=== PATIENT | female | born 1965 | race Caucasian/White ===

== ENCOUNTER 2017-03-20 13:22 | Emergency (ER) | payer SELFPAY ==
[~2017-03-20] VITALS: Ht 172.7 cm; Wt 78.0 kg
[~2017-03-20 13:22] MED LIST: AMBIEN5 MG PO; BACTRIM DS1 TAB PO; BENZTROPINE0.5 MG PO; CLINDAMYCIN150 MG PO; CLONAZEPAM1 MG PO; KEFLEX500 MG PO; LORTAB 5/3255 MG PO; MECLIZINE25 MG PO; METHOCARBAMOL500 MG PO; NAPROSYN500 MG PO; PROVENTIL HFA IN; PROZAC10 MG PO; PROZAC20 MG PO; RISPERDAL2 MG PO; TEMAZEPAM30 MG PO; TRAMADOL HCL50 MG PO; TRILEPTAL300 M1 PO
[2017-03-20] MEDS ORDERED: [UNRECOGNIZED DRUG - OTHER] PO (13:53)
[2017-03-20] MEDS ORDERED: BACLOFEN20 MG PO (13:53)
[2017-03-20] MEDS ORDERED: LORTAB 10-325 M1 TAB PO (14:55)
[2017-03-20 15:10] VITALS: BP 112/61
== END 2017-03-20 15:10 | disposition home or self-care (01) | DRG 563 ==
LOC: ED 13:22
DX: S92.352A Displaced fracture of fifth metatarsal bone, left foot, initial encounter for closed fracture (principal); F31.9 Bipolar disorder, unspecified; F41.9 Anxiety disorder, unspecified; J45.909 Unspecified asthma, uncomplicated; X50.1XXA Overexertion from prolonged static or awkward postures, initial encounter

== ENCOUNTER 2019-07-14 13:12 | Observation (INO) | payer MEDICARE, MEDICAID ==
[~2019-07-14] VITALS: Ht 172.7 cm; Wt 84.1 kg
[~2019-07-14 13:12] MED LIST changes: +BACLOFEN20 MG PO; +LORTAB 10-325 M1 TAB PO; +[UNRECOGNIZED DRUG - OTHER] PO
[2019-07-14 13:36] LABS: HEMATOCRIT 34.9 % (37.0-47.0); HEMOGLOBIN 11.9 g/dl (12.0-16.0); IMMATURE GRANULOCYTES 0.7 % (0.0-5.0); MEAN CELL VOLUME 85.7 fL CALC (80.0-100.0); MEAN CORPUSCULAR HGB 29.2 pG CALC (26.0-32.0); MEAN CORPUSCULAR HGB CONC 34.1 g/L CALC (32.0-36.0); NEUT# 3.51 thou/uL (2.00-7.15); RED BLOOD COUNT 4.07 mill/uL (4.20-5.60); RED CELL DISTRI WIDTH 13.4 % (11.5-15.5)
[2019-07-14 13:50] LABS: ANION GAP 15 (6-22 (CALC)); BUN 13 mg/dL (7-17); BUN/CREATININE RATIO 28 (12-20 (CALC)); CARBON DIOXIDE 23 mmol/l (22-30); CHLORIDE 93 mmol/l (95-108); CREATININE 0.5 mg/dL (0.5-1.0); GFR > 60 ML/MIN (>=60 (CALC)); GFR FOR AFR.AMER. > 60 ML/MIN (>=60 (CALC)); POTASSIUM 4.2 mmol/l (3.5-5.1); SODIUM 126 mmol/l (137-146)
[2019-07-14 13:58] LABS: GFR > 60 ML/MIN (>=60 (CALC)); GFR FOR AFR.AMER. > 60 ML/MIN (>=60 (CALC))
[2019-07-14] MEDS ORDERED: LYRICA50 MG PO (15:31)
[2019-07-14] MEDS ORDERED: TIZANIDINE HCL2 MG PO (16:58)
[2019-07-14 17:26] VITALS: BP 140/70
[2019-07-14 17:27] LABS: URINE BILIRUBIN - DIPSTICK NEGATIVE (NEGATIVE); URINE BLOOD DIPSTICK NEGATIVE (NEGATIVE); URINE COLOR YELLOW; URINE GLUCOSE - DIPSTICK NEGATIVE (NEGATIVE); URINE KETONE NEGATIVE (NEGATIVE); URINE LEUK ESTERASE NEGATIVE (NEGATIVE); URINE NITRITE - DIPSTICK NEGATIVE (Negative); URINE PROTEIN - DIPSTICK NEGATIVE (NEG-TRACE); URINE SPECIFIC GRAVITY 1.025; URINE UROBILINOGEN - DIPSTICK 0.2 E.U./dL (0.2)
[2019-07-14 19:45] VITALS: BP 148/81
[2019-07-15 04:52] LABS: HEMATOCRIT 37.3 % (37.0-47.0); HEMOGLOBIN 12.5 g/dl (12.0-16.0); MEAN CELL VOLUME 86.9 fL CALC (80.0-100.0); MEAN CORPUSCULAR HGB 29.1 pG CALC (26.0-32.0); MEAN CORPUSCULAR HGB CONC 33.5 g/L CALC (32.0-36.0); RED BLOOD COUNT 4.29 mill/uL (4.20-5.60); RED CELL DISTRI WIDTH 13.9 % (11.5-15.5)
[2019-07-15 05:00] VITALS: BP 169/98
[2019-07-15 05:06] LABS: ANION GAP 17 (6-22 (CALC)); BUN 8 mg/dL (7-17); BUN/CREATININE RATIO 16 (12-20 (CALC)); CARBON DIOXIDE 24 mmol/l (22-30); CHLORIDE 99 mmol/l (95-108); CREATININE 0.5 mg/dL (0.5-1.0); GFR > 60 ML/MIN (>=60 (CALC)); GFR FOR AFR.AMER. > 60 ML/MIN (>=60 (CALC)); POTASSIUM 4.6 mmol/l (3.5-5.1); SODIUM 135 mmol/l (137-146)
[2019-07-15 08:15] VITALS: BP 140/86
[2019-07-15] MEDS ORDERED: MEDDOSEPAK PO (10:22)
== END 2019-07-15 13:20 | disposition home or self-care (01) ==
LOC: ED 13:12 → ED-I 15:08 → ED 15:21 → MS2 15:22
PROVIDERS: Family Medicine; ADMIT Internal Medicine; ATTEND Internal Medicine
PROC: 3E0234Z Introduction of Serum, Toxoid and Vaccine into Muscle, Percutaneous Approach (ICD-10-PCS; principal; 2019-07-15)
DX: R55 Syncope and collapse (principal); E87.1 Hypo-osmolality and hyponatremia; J45.901 Unspecified asthma with (acute) exacerbation; F31.9 Bipolar disorder, unspecified; F41.9 Anxiety disorder, unspecified; Z23 Encounter for immunization

== ENCOUNTER 2019-11-19 22:11 | Observation (INO) | payer MEDICARE, MEDICAID ==
[~2019-11-19] VITALS: Ht 172.7 cm; Wt 82.0 kg
[~2019-11-19 22:11] MED LIST changes: -BENZTROPINE0.5 MG PO; +BENZTROPINE1 MG PO; +FLUOXETINE20 MG PO; +LYRICA150 M1 PO; +MEDDOSEPAK PO; -PROZAC10 MG PO; +TIZANIDINE HCL2 MG PO; -TRILEPTAL300 M1 PO; +TRILEPTAL600 M1 PO
--- NOTE | 2019-11-19 22:12 | NUR ---
PATIENT TO ROOM 8 VIA EMS STRETCHER. UNDRESSED INTO A GOWN. PLACED ON MONITOR. TRIAGE COMPLETED FROM OLD RECORDS. PATIENT IS POOR HISTORIAN, UNABLE TO ANSWER QUESTIONS REGARDING HER HISTORY OTHER THAN SHE IS BIPOLAR. STATES HER MOTHER IS ON HER WAY.
--- NOTE | 2019-11-19 22:34 | NUR ---
EXTREMELY DROWSEY. OPENS EYES ONLY WITH PHYSICAL STIMULI. UNABLE TO OBTAINED SPUTUM SPECIMEN AT THI TIME
[2019-11-19 22:53] LABS: HEMATOCRIT 36.7 % (37.0-47.0); HEMOGLOBIN 12.2 g/dl (12.0-16.0); IMMATURE GRANULOCYTES 0.5 % (0.0-5.0); MEAN CELL VOLUME 85.5 fL CALC (80.0-100.0); MEAN CORPUSCULAR HGB 28.4 pG CALC (26.0-32.0); MEAN CORPUSCULAR HGB CONC 33.2 g/L CALC (32.0-36.0); NEUT# 8.44 thou/uL (2.00-7.15); RED BLOOD COUNT 4.29 mill/uL (4.20-5.60); RED CELL DISTRI WIDTH 14.1 % (11.5-15.5)
--- NOTE | 2019-11-19 22:54 | NUR ---
FAMILY AT BEDSIDE
[2019-11-19 23:09] LABS: ALBUMIN 4.2 g/dL (3.2-5.0); ALKALINE PHOSPHATASE 105 u/l (38-126); BUN 12 mg/dL (7-17); BUN/CREATININE RATIO 23 (12-20 (CALC)); CARBON DIOXIDE 23 mmol/l (22-30); CHLORIDE 88 mmol/l (95-108); CREATININE 0.5 mg/dL (0.5-1.0); ETHYL ALCOHOL 0 mg/dl (0-30); GFR > 60 ML/MIN (>=60 (CALC)); GFR FOR AFR.AMER. > 60 ML/MIN (>=60 (CALC)); POTASSIUM 3.9 mmol/l (3.5-5.1); SGOT/AST 58 u/l (14-36); TOTAL PROTEIN 7.1 g/dL (6.3-8.2)
[2019-11-19 23:24] LABS: ANION GAP 19 (6-22 (CALC)); BILIRUBIN, TOTAL 0.9 mg/dL (0.0-1.4); SODIUM 126 mmol/l (137-146)
[2019-11-19 23:28] LABS: COCAINE NEGATIVE (NEGATIVE); METHADONE NEGATIVE (NEGATIVE); TETRAHYDROCANNABIONOL POSITIVE (NEGATIVE); TRICYLIC ANTIDEPRESSANTS POSITIVE (NEGATIVE)
[2019-11-19 23:29] LABS: BARBITURATES NEGATIVE (NEGATIVE); OXCYCODONE NEGATIVE (NEGATIVE)
--- NOTE | 2019-11-19 23:31 | NUR ---
VISITOR AT BEDSIDE. PT AWAITING TEST RESULTS. BEDRESTING WITH EYES CLOSED.
[2019-11-19 23:36] LABS: URINE BILIRUBIN - DIPSTICK NEGATIVE (NEGATIVE); URINE BLOOD DIPSTICK NEGATIVE (NEGATIVE); URINE COLOR YELLOW; URINE GLUCOSE - DIPSTICK NEGATIVE (NEGATIVE); URINE KETONE NEGATIVE (NEGATIVE); URINE LEUK ESTERASE NEGATIVE (NEGATIVE); URINE NITRITE - DIPSTICK NEGATIVE (Negative); URINE PH 5.5 (4.5-8.0); URINE PROTEIN - DIPSTICK NEGATIVE (NEG-TRACE); URINE UROBILINOGEN - DIPSTICK 0.2 E.U./dL (0.2)
--- NOTE | 2019-11-19 23:41 | NUR ---
B/P 81/43 PT SLEEPING AND SNOORING. PT REMAINS DIFFICULT TO AWAKEN. TO INITIATE FLUID BOLUS.
--- NOTE | 2019-11-19 23:48 | NUR ---
FLUID BOLUS INITIATED WITH FIRST LITER OF NS
--- NOTE | 2019-11-20 00:12 | NUR ---
SECOND LACTIC ACID OBTAINED
--- NOTE | 2019-11-20 00:31 | NUR ---
DRANK A BOTTLE OF PEDIALYTE AND TOLERATED WELL
--- NOTE | 2019-11-20 00:33 | NUR ---
BEDRESTING. SISTER AT BEDSIDE. NO DISTRESS NOTED
--- NOTE | 2019-11-20 00:45 | NUR ---
WET DIAPER. ALERT. AND ACTIVE. NO DISTRESS NOTED
--- NOTE | 2019-11-20 00:50 | NUR ---
PT MORE AWAKE.
--- NOTE | 2019-11-20 00:55 | NUR ---
PT STATES SHE WANTS TO GO HOME AND GET INTO HER BED TO SLEEP. HER SISTER SAID THE ONLY WAY SHE IS GOING HOME IS IF SHE CAN WALK OUT THE DOOR ON HER OWN. SHE WAS NOT LIFTING HER. PT AGREED TO STAY
--- NOTE | 2019-11-20 01:00 | NUR ---
BOLUS CONTINUES WITH SECOND LITER OF FLUIDS
--- NOTE | 2019-11-20 01:05 | NUR ---
DISCUSSING FINDINGS AND PLAN OF CARE WITH PT AND FAMILY
[2019-11-20] MEDS ORDERED: TRILEPTAL300 M1 PO (01:28)
--- NOTE | 2019-11-20 01:40 | NUR ---
REPORT CALLED TO PONCHO TAPIA ON MS
--- NOTE | 2019-11-20 01:46 | NUR ---
3RD LITER OF NS INTIATED TO COMPLETE FLUIDS BOLUS
--- NOTE | 2019-11-20 02:00 | NUR ---
PT ARIVED TO THE FLOOR VIA STRETCHER ACCOMPANIED BY ED STAFF. PT DROWSY, PT TRANSFERED FROM STRETCHER TO BED. RESPIRATIONS EVEN AND UNLABORED ON O2 @ 2L VIA NC. LUNGS SOUND CLEAR. PEDAL PULSES STRONG. PT DENIES ANY PAIN OR DISCOMFORT. SKIN IS INTACT. PT ORIENTED TO ROOM AND CALL [facility]. PT PROVIDED WITH WATER AND A SNACK PER REQUEST. CALL [facility] WITHIN REACH. WILL CONTINUE TO MONITOR.
--- NOTE | 2019-11-20 02:00 | NUR ---
TO MS VIA STRETCHER. AWAKE AND ALERT. TALKATIVE
[2019-11-20 02:09] VITALS: BP 98/58
[2019-11-20 03:30] VITALS: BP 93/54
--- NOTE | 2019-11-20 04:30 | NUR ---
PT RESTING IN BED WITH EYES CLOSED. RESPIRATIONS SHALLOW ON O2 @ 2L VIA NC. NO S/S OF DISTRESS AT THIS TIME. SAFETY PRECAUTIONS IN PLACE.
[2019-11-20 05:17] LABS: IMMATURE GRANULOCYTES 0.6 % (0.0-5.0); MEAN CORPUSCULAR HGB 29.2 pG CALC (26.0-32.0); MEAN CORPUSCULAR HGB CONC 33.9 g/L CALC (32.0-36.0); NEUT# 8.56 thou/uL (2.00-7.15); RED BLOOD COUNT 3.43 mill/uL (4.20-5.60); RED CELL DISTRI WIDTH 14.4 % (11.5-15.5)
[2019-11-20 05:30] LABS: HEMATOCRIT 29.5 % (37.0-47.0)
[2019-11-20 05:38] LABS: ANION GAP 13 (6-22 (CALC)); BUN 12 mg/dL (7-17); BUN/CREATININE RATIO 24 (12-20 (CALC)); CARBON DIOXIDE 22 mmol/l (22-30); CHLORIDE 96 mmol/l (95-108); CREATININE 0.5 mg/dL (0.5-1.0); GFR > 60 ML/MIN (>=60 (CALC)); GFR FOR AFR.AMER. > 60 ML/MIN (>=60 (CALC)); POTASSIUM 4.2 mmol/l (3.5-5.1); SODIUM 127 mmol/l (137-146)
[2019-11-20 07:25] VITALS: BP 130/77
--- NOTE | 2019-11-20 07:25 | NUR ---
AWAKE, RESTING IN BED ON ROUNDS. ALERT AND WELL ORIENTED. RESP NON-LABORED. LUNGS CLEAR THROUGHOUT. VSS. IV IN RAC WITH NS INFUSING AT 125 ML/HR, SITE BENIGN. ASSISTED PATIENT TO BR TO VOID, STANCE STABLE, GAIT SOMEWHAT UNSTEADY. REINFORCED WITH PATIENT FALL PRECAUTIONS AND NEED TO CALL FOR ASSISTANCE TO BE OOB. DISCUSSED PLAN OF CARE. MEDICTED FOR C/O HEADACHE. CALL JASSO IN REACH.
[2019-11-20] MEDS ORDERED: SINGULAIR10 MG PO (11:02)
[2019-11-20] MEDS ORDERED: CELEBREX100 M1 PO (11:03)
--- NOTE | 2019-11-20 11:10 | NUR ---
PATIENT HAD 2V CHEST XRAY IN XRAY DEPARTMENT COMPLETED. BACK IN BED AT THIS TIME. C/O HEADACHE AND FEELING VERY HOT. RECHECK OF VS REVEAL TEMP OF 103.5. INFORMED E CAMILO/CARRIE AND NEW ORDERS RECEIVED.
[2019-11-20 11:15] VITALS: BP 123/72
--- NOTE | 2019-11-20 12:30 | NUR ---
RECHECK OF TEMP 98.6.
[2019-11-20 15:39] VITALS: BP 122/78
--- NOTE | 2019-11-20 18:30 | NUR ---
PATIENT TO GO FOR CT ABD, STARTED GASTROGRAPHIN AT THIS TIME.
[2019-11-20 18:40] VITALS: BP 116/71
--- NOTE | 2019-11-20 20:50 | NUR ---
PT TAKEN TO CT SCAN BY AIDE VIA WC. APPEARED STABLE UPON LEAVING FLOOR, SELF AMBULATED TO WC.
--- NOTE | 2019-11-20 23:31 | NUR ---
PT ASSISTED BACK TO BED FROM RESTROOM. REPORTS MULTIPLE STOOL THIS PM SINCE RETURNING FROM CT SCAN/REPOTED FORMED X3 AND 1X LOOSE. PT MEDICATED W/IV ANTIBIOTIC THERAPY. DENIES ANY OTHER NEEDS AT THIS TIME. CALL LIGHT AT BEDSIDE.
--- NOTE | 2019-11-21 02:05 | NUR ---
PT APPEARS TO BE SLEEPING AT THIS TIME. NO S/O DISTRESS NOTED.
[2019-11-21 03:20] VITALS: BP 151/84
[2019-11-21 05:03] LABS: HEMATOCRIT 33.3 % (37.0-47.0); HEMOGLOBIN 10.8 g/dl (12.0-16.0); MEAN CELL VOLUME 86.5 fL CALC (80.0-100.0); MEAN CORPUSCULAR HGB 28.1 pG CALC (26.0-32.0); MEAN CORPUSCULAR HGB CONC 32.4 g/L CALC (32.0-36.0); RED BLOOD COUNT 3.85 mill/uL (4.20-5.60); RED CELL DISTRI WIDTH 14.9 % (11.5-15.5)
[2019-11-21 05:04] LABS: ANION GAP 13 (6-22 (CALC)); BUN 7 mg/dL (7-17); BUN/CREATININE RATIO 16 (12-20 (CALC)); CARBON DIOXIDE 23 mmol/l (22-30); CHLORIDE 101 mmol/l (95-108); CREATININE 0.4 mg/dL (0.5-1.0); GFR > 60 ML/MIN (>=60 (CALC)); GFR FOR AFR.AMER. > 60 ML/MIN (>=60 (CALC)); MAGNESIUM 1.9 mg/dL (1.6-2.3); POTASSIUM 4.2 mmol/l (3.5-5.1); SODIUM 133 mmol/l (137-146)
--- NOTE | 2019-11-21 05:48 | NUR ---
PT MEDICATED ORDERS PROVIDE. NO S/O DISTRESS AT THIS TIME. PT REPORTS FEELING TIRED. SHE IS AWAKE W/LIGHTS ON WATCHING TV.
[2019-11-21 07:40] VITALS: BP 149/82
--- NOTE | 2019-11-21 07:40 | NUR ---
ASSESSMENT IS COMPLETED: IV SITE IS FREE FROM REDNESS OR EDEMA. HR IS REG,PULSES ARE STRONG X4, ABD IS SOFT WITH ACTIVE BS. BREATH SOUNDS ARE CLEAR,BILATERALLY. CONTINUE TO OSEBRVE AND MONITOR.
[2019-11-21] MEDS ORDERED: Levaquin PO (11:50)
--- NOTE | 2019-11-21 12:00 | NUR ---
PT IS RELAXING IN BED WANTING TO GO HOME. EXPLAINED ABOUT NEEDING STOOL . PT SAID "THAT ONLY HAPPENED WHHEN I HAD GASTROGAFFIN, NOW IT HAS RESOLVED". CONTINUE TO OSBERVE AND MONITOR.
--- NOTE | 2019-11-21 14:45 | NUR ---
IV SITE DISCONTINUED CATHETER INTACT.
--- NOTE | 2019-11-21 15:07 | NUR ---
PT AMBULATED OFF THE UNIT. WITH FAMILY MEMBERS RECEIVED DISCHARGE INSTRUCTIONS. AND VERBALZIED UNDERSTANDING. Discharge instructions given. Patient verbalizes understanding of same. Discharged in stable condition via Ambulatory to Home with family. All belongings sent with pt.
--- NOTE | 2019-11-21 15:30 | NUR ---
AUXILLARY IN THE UNIT,. STATED" THE PT NEEDED A WC AFTER SHE WENT DOWNSTAIRS" WAS OFFERED BEFORE LEAVING THE UNIT.
== END 2019-11-21 15:07 | disposition home or self-care (01) ==
LOC: ED 22:11 → ED-I 11-20 00:57 → ED 11-20 01:16 → MS2 11-20 01:17
PROVIDERS: Family Medicine; Nurse Practitioner Family; ADMIT Internal Medicine; ATTEND Internal Medicine
DX: R50.9 Fever, unspecified (principal); E87.1 Hypo-osmolality and hyponatremia; F31.9 Bipolar disorder, unspecified; K59.00 Constipation, unspecified; Z87.891 Personal history of nicotine dependence; R11.2 Nausea with vomiting, unspecified; R19.7 Diarrhea, unspecified
CPT/HCPCS: G0378; J0131; J1650

== ENCOUNTER 2019-11-24 22:01 | Inpatient (IN) | payer MEDICARE, MEDICAID ==
[~2019-11-24] VITALS: Ht 172.7 cm; Wt 81.6 kg
[~2019-11-24 22:01] MED LIST changes: +CELEBREX100 M1 PO; +Levaquin PO; +SINGULAIR10 MG PO; +TRILEPTAL300 M1 PO
--- NOTE | 2019-11-24 22:01 | NUR ---
TO ROOM BY EMS
[2019-11-24 22:43] LABS: URINE BLOOD DIPSTICK TRACE-INTACT (NEGATIVE); URINE GLUCOSE - DIPSTICK NEGATIVE (NEGATIVE); URINE KETONE NEGATIVE (NEGATIVE); URINE LEUK ESTERASE NEGATIVE (NEGATIVE); URINE NITRITE - DIPSTICK NEGATIVE (Negative); URINE PH 5.5 (4.5-8.0); URINE PROTEIN - DIPSTICK TRACE mg/dL (NEG-TRACE); URINE UROBILINOGEN - DIPSTICK 0.2 E.U./dL (0.2)
[2019-11-24 22:44] LABS: URINE BILIRUBIN - DIPSTICK MODERATE (NEGATIVE); URINE COLOR AMBER
[2019-11-24 22:45] LABS: HEMATOCRIT 34.3 % (37.0-47.0); HEMOGLOBIN 11.5 g/dl (12.0-16.0); IMMATURE GRANULOCYTES 0.6 % (0.0-5.0); MEAN CELL VOLUME 84.3 fL CALC (80.0-100.0); MEAN CORPUSCULAR HGB 28.3 pG CALC (26.0-32.0); MEAN CORPUSCULAR HGB CONC 33.5 g/L CALC (32.0-36.0); NEUT# 7.71 thou/uL (2.00-7.15); RED BLOOD COUNT 4.07 mill/uL (4.20-5.60); RED CELL DISTRI WIDTH 14.5 % (11.5-15.5)
[2019-11-24 23:57] LABS: ALBUMIN 3.7 g/dL (3.2-5.0); ALKALINE PHOSPHATASE 254 u/l (38-126); ANION GAP 16 (6-22 (CALC)); BILIRUBIN, TOTAL 2.7 mg/dL (0.0-1.4); BUN 25 mg/dL (7-17); BUN/CREATININE RATIO 27 (12-20 (CALC)); CARBON DIOXIDE 24 mmol/l (22-30); CHLORIDE 91 mmol/l (95-108); CREATININE 0.9 mg/dL (0.5-1.0); GFR > 60 ML/MIN (>=60 (CALC)); GFR FOR AFR.AMER. > 60 ML/MIN (>=60 (CALC)); POTASSIUM 3.4 mmol/l (3.5-5.1); SGOT/AST 241 u/l (14-36); SODIUM 128 mmol/l (137-146); TOTAL PROTEIN 6.5 g/dL (6.3-8.2)
[2019-11-25] MEDS ORDERED: PROZAC20 MG PO (02:56)
[2019-11-25] MEDS ORDERED: TRILEPTAL150 M1 PO (03:01)
--- NOTE | 2019-11-25 06:12 | NUR ---
PT. ARRIVED TO THE FLOOR VIA W/C ACCOMPANIED BY ER NURSE. PT. ABLE TO AMBULATE TO SCALE AND BED WITH STEADY GAIT. ORIENTED TO CALL LIGHT, ROOM, AND POC AND VERBALIZES UNDERSTANDING. ADMISSION QUESTIONARE COMPLETED AND VSS. TELEMETRY IN PLACE. IV SITE PATENT AND ORDERED IVF AND ABT HUNG PER ORDER. DENIES NEEDS AND VOICES NO CONCERNS. CALL LIGHT IS IN REACH.
[2019-11-25 06:28] VITALS: BP 129/71
--- NOTE | 2019-11-25 07:15 | NUR ---
REPORT RECIEVED FROM MARYRN;PT RESTING IN SEMI FOWLERS POSITION;INTRODUCED SELF TO PT AND POC DISCUSSED;RESPIRATIONS EVEN AND UNLABORED ON RA;PT DENIES ANY CURRENT PAIN OR NEEDS;TELE MONITORING IN PLACE;IV FLUIDS INFUSING TO RIGHT HAND WITH EASE;ENCOURAGED TO CALL FOR ASSISTANCE IF NEEDED;FALL PRECAUTIONS IN PLACE WITH CALL LIGHT IN REACH;WILL CONTINUE TO MONITOR
--- NOTE | 2019-11-25 08:40 | NUR ---
PT RESTING IN SEMI FOWLERS POSITION,A&O X3;VS OBTAINED AND ASSESSMENT COMPLETED;PT DENIES ANY CURRENT PAIN OR DISCOMFORTS,PAIN SCALE AND REPORTING EDUCATED;RESPIRATIONS EVEN AND UNLABORED ON RA,CLEAR/DIMINISHED LUNG SOUNDS NOTED;NON-PRODUCTIVE COUGH AT TIMES;ABDOMEN SOFT ON PALPATION AND ACTIVE IN ALL 4 QUADRANTS,LAST BM 11/23/19;STRONG PEDAL PULSES;SKIN INTACT;TELE MONITORING IN PLACE;EMS #20G TO RIGHT HAND INFUSING NS @ 125ML/HR,SITE APPEARS HEALTHY;PT DENIES ANY ADDITIONAL NEEDS AND IS ENCOURAGED TO CALL FOR ASSISTANCE IF NEEDED;CALL LIGHT IN REACH;WILL CONTINUE TO MONITOR
[2019-11-25 08:43] VITALS: BP 140/73
--- NOTE | 2019-11-25 10:41 | NUR ---
AT BEDSIDE DISCUSSING POC WITH PT.
[2019-11-25 12:23] VITALS: BP 151/84
--- NOTE | 2019-11-25 12:30 | NUR ---
PT RESTING IN SEMI FOWLERS POSITION;RESPIRATIONS EVEN AND UNLABORED ONRA;PT DENIES ANY CURRENT PAIN OR DISCOMFORTS;TELE MONITORING IN PLACE;IV FLUIDS INFUSING WITH EASE PER ORDER;TEMP 100.9, PRN TYLENOL 650MG PO ADMINISTERED AT THIS TIME;PT ENCOURAGED TO CALL FOR ASSISTANCE IF NEEDED;CALL LIGHT IN REACH;WILL CONTINUE TO MONITOR
--- NOTE | 2019-11-25 13:40 | NUR ---
TEMP RE-CHECK 99.3
[2019-11-25 15:54] VITALS: BP 157/80
--- NOTE | 2019-11-25 16:20 | NUR ---
PT RESTING IN SEMI FOWLERS POSITION WITH VISITORS AT BEDSIDE;RESPIRATIONS EVEN AND UNLABORED ON RA;PT DENIES ANY CURRENT PAIN OR DISCOMFORTS;TELE MONITORING IN PLACE;IV FLUIDS INFUSING TO RIGHT HAND WITH EASE;ASSESSMENT REMAINS UNCHANGED AT THIS TIME;ENCOURAGED TO CALL FOR ASSISTANCE IF NEEDED;CALL LIGHT IN REACH;WILL CONTINUE TO MONITOR
--- NOTE | 2019-11-25 16:54 | NUR ---
EMS IV SITE REMOVED WITH CATHETER INTACT DUE TO EXPIRATION DATE;NEW #22G STARTED TO LEFT HAND ON 1ST ATTEMPTBY THIS WRITTER,PT TOLERATED WELL;IV FLUIDS RE-STARTED PER ORDER;PT DENIES ANY ADDITIONAL NEEDS;WILL CONTINUE TO MONITOR
[2019-11-25 19:02] VITALS: BP 153/83
--- NOTE | 2019-11-25 20:00 | NUR ---
PATIENT RESTING IN BED AT THIS TIME. AWAKE ALERT AND ORIENTEDX3. PATIENT MIN ASSIST TO THE BR TO VOID AND THEN BACK TO BED. STEADY ON HER FEET. TELE MONITOR IN PLACE. NON-PRODUCTIVE COUGH NOTED. IV SITE TO LEFT HAND INTACT WITH IVF NS PATENT AND INFUSING AT 125CC/HR. SITE REMIANS HEALTHY AT THIS TIME. AFEBRILE AT THIS ITME. SAFETY PRECAUTIONS REINFORCED. CALL LIGHT IN REACH. WILL CONT TO MONITOR.
[2019-11-26] VITALS (8 sets, daily range): BP systolic 141–179; BP diastolic 71–97
--- NOTE | 2019-11-26 03:43 | NUR ---
PATIENT RESTING IN BED WITH HOB SLIGHTLY ELEVATED AND EYES CLOSED. RESP ARE EVEN AND UNLABORED. TELE MONITOR IN PLACE. CALL LIGHT IN REACH. WILL CONT TO MONITOR.
[2019-11-26 05:31] LABS: HEMATOCRIT 31.7 % (37.0-47.0); HEMOGLOBIN 10.5 g/dl (12.0-16.0); MEAN CELL VOLUME 86.1 fL CALC (80.0-100.0); MEAN CORPUSCULAR HGB 28.5 pG CALC (26.0-32.0); MEAN CORPUSCULAR HGB CONC 33.1 g/L CALC (32.0-36.0); NEUT# 4.45 thou/uL (2.00-7.15); RED BLOOD COUNT 3.68 mill/uL (4.20-5.60)
[2019-11-26 05:52] LABS: ALBUMIN 3.1 g/dL (3.2-5.0); ALKALINE PHOSPHATASE 245 u/l (38-126); BILIRUBIN, TOTAL 2.5 mg/dL (0.0-1.4); BUN 7 mg/dL (7-17); BUN/CREATININE RATIO 17 (12-20 (CALC)); CARBON DIOXIDE 23 mmol/l (22-30); CREATININE 0.4 mg/dL (0.5-1.0); GFR > 60 ML/MIN (>=60 (CALC)); GFR FOR AFR.AMER. > 60 ML/MIN (>=60 (CALC)); POTASSIUM 3.8 mmol/l (3.5-5.1); SGOT/AST 152 u/l (14-36); TOTAL PROTEIN 5.7 g/dL (6.3-8.2)
[2019-11-26 06:01] LABS: ANION GAP 13 (6-22 (CALC)); CHLORIDE 104 mmol/l (95-108); SODIUM 136 mmol/l (137-146)
--- NOTE | 2019-11-26 07:20 | NUR ---
REPORT RECEIVED FROM PONCHO SANDOVAL;PT RESTING IN SEMI FOWLERS POSITION;INTRODUCED SELF TO PT AND POC DISCUSSED;PT DENIES ANY CURRENT PAIN OR NEEDS;TELE MONITORING IN PLACE;RESPIRATIONS EVEN AND UNLABORED ON RA;IV FLUIDS INFUSING WITH EASE TO LEFT HAND;ENCOURAGED TO CALL FOR ASSISTANCE IF NEEDED;FALL PRECAUTIONS IN PLACE WITH BED IN THE LOWEST POSITION AND CALL LIGHT IN REACH;WILL CONTINUE TO MONITOR
[2019-11-26 07:39] LABS: C-REACTIVE PROTEIN 6.1 mg/dL (0-0.9)
--- NOTE | 2019-11-26 07:40 | NUR ---
LAB AT BEDSIDE
--- NOTE | 2019-11-26 08:00 | NUR ---
PT RESTING IN SEMI FOWLERS POSITION,A&O X3;VS OBTAINED AND ASSESSMENT COMPLETED,CURRENT BP 170/90 HR 69;PT REPORTS HEADACHE PAIN AND REQUESTS PAIN MEDICATION,PT TO BE MEDICATED WITH PRN TYLENOL 650MG PO;RESPIRATIONS EVEN AND UNLABORED ON RA,NON-PRODUCTIVE COUGH AT TIMES;ABDOMEN SOFT ON PALPATION AND ACTIVE IN ALL 4 QUADRANTS;STRONG PEDAL PULSES;SKIN INTACT;TELE MONITORING IN PLACE;#22G TO LEFT WRIST INFUSING NS @ 100ML/HR,SITE APPEARS HEALTHY;PT DENIES ANY ADDITIONAL NEEDS AT THIS TIME AND IS ENCOURAGED TO CALL FOR ASSISTANCE IF NEEDED;FALL PRECAUTIONS IN PLACE WITH CALL LIGHT IN REACH;WILL CONTINUE TO MONITOR
--- NOTE | 2019-11-26 09:20 | NUR ---
BP RE-CHECK 148/72 HR 71
--- NOTE | 2019-11-26 12:20 | NUR ---
PT RESTING AT BEDSIDE EATING LUNCH;RESPIRATIONS EVEN AND UNLABORED ON RA;PT DENIES ANY CURRENT PAIN OR NEEDS;TELE MONITORING IN PLACE;IV SITE PATENT INFUSING NS WITH EASE PER ORDER;PT DENIES ANY ADDITIONAL NEEDS AND IS ENCOURAGED TO CALL FOR ASSISTANCE IF NEEDED;ASSESSMENT REMAINS UNCHANGED;CALL LIGHT IN REACH;WILL CONTINUE TO MONITOR
--- NOTE | 2019-11-26 16:10 | NUR ---
PT RESTING AT BEDSIDE;RESPIRATIONS EVEN AND UNLABORED ON RA;PT DENIES ANY CURRENT PAIN OR NEEDS;TELE MONITORING IN PLACE;IV FLUIDS INFUSING TO LEFT HAND WITH EASE PER ORDER;PT DENIES ANY ADDITIONAL NEEDS AND IS ENCOURAGED TO CALL FOR ASSISTANCE IF NEEDED;CALL LIGHT IN REACH;WILL CONTINUE TO MONITOR
--- NOTE | 2019-11-26 20:00 | NUR ---
PATIENT RESTING IN BED AT THIS TIME WATCHING TV. AWAKE ALERT AND ORIENTEDX3. IVF NS PAENT AND INFUSING VIA LEFT HAND AT 125CC/HR. SITE REMAINS HEALTHY. CALL LIGHT IN REACH. WILL CONT TO MONITOR.
--- NOTE | 2019-11-27 | NUR ---
PATIENT ASSISTED WTIH AND SET UP FOR SHOWER-TOLERATED WELL. PATIENT UP AMBULATING IN THE BOWSER AFTER SHOWER-TOLERATED WELL. RECONNECTED TO IVF AT 125CC/HR. SITE REMAINS HEALTHY. CALL LIGHT IN REACH. WILL CONT TO MONITOR.
--- NOTE | 2019-11-27 03:18 | NUR ---
PATIENT RESTING IN BED WITH HOB ELEVATED AND WATCHING TV. AWAKE ALERT AND ORIENTEDX3. IVF PATENT AND INFUSING VIA LEFT HAND SITE AT 125CC/HR. SITE REMAINS HEALTHY AT THIS TIME. UP TO THE BR TO VOID QS YELLOW URINE. BACK TO BED. STEADY GAIT. NO COMPLAINTS AT THIS TIME. CALL LIGHTIN REACH.
[2019-11-27 03:20] VITALS: BP 138/78
[2019-11-27 05:54] LABS: HEMATOCRIT 33.5 % (37.0-47.0); IMMATURE GRANULOCYTES 1.8 % (0.0-5.0); MEAN CELL VOLUME 85.9 fL CALC (80.0-100.0); MEAN CORPUSCULAR HGB 28.2 pG CALC (26.0-32.0); MEAN CORPUSCULAR HGB CONC 32.8 g/L CALC (32.0-36.0); NEUT# 2.32 thou/uL (2.00-7.15); RED BLOOD COUNT 3.9 mill/uL (4.20-5.60); RED CELL DISTRI WIDTH 15.2 % (11.5-15.5)
[2019-11-27 06:18] LABS: ANION GAP 12 (6-22 (CALC)); BUN 6 mg/dL (7-17); BUN/CREATININE RATIO 12 (12-20 (CALC)); CARBON DIOXIDE 26 mmol/l (22-30); CHLORIDE 105 mmol/l (95-108); CREATININE 0.5 mg/dL (0.5-1.0); GFR > 60 ML/MIN (>=60 (CALC)); GFR FOR AFR.AMER. > 60 ML/MIN (>=60 (CALC)); POTASSIUM 3.6 mmol/l (3.5-5.1); SODIUM 140 mmol/l (137-146)
[2019-11-27 07:42] VITALS: BP 177/92
--- NOTE | 2019-11-27 08:01 | NUR ---
ASSESSMENT DONE. TELE IN PLACE. PT IS A&O X3. PT DENIES PAIN AT THIS TIME. IVF INFUSING WELL. PT DENIES ANY NEEDS AT THIS TIME. CALL LIGHT IN REACH.
[2019-11-27 11:30] VITALS: BP 165/95
--- NOTE | 2019-11-27 12:45 | NUR ---
PT IS RESTING IN BED WITH NO S/S OF DISTRESS NOTED. PT DENIES ANY NEEDS AT THIS TIME. CALL LIGHT IN REACH.
--- NOTE | 2019-11-27 15:43 | NUR ---
PT IS RESTING IN BED WITH NO S/S OF DISTRESS NOTED. PT DENIES NEEDS AT THIS TIME. CALL LIGHT IN REACH.
[2019-11-27 16:06] VITALS: BP 155/87
[2019-11-27 19:34] VITALS: BP 148/82
--- NOTE | 2019-11-27 21:01 | NUR ---
PATIENT SITTING IN BED WATCHING T.V. PATIENT HAS NO COMPLAINTS AT THIS TIME. NURSE INSTRUCTED PATIENT TO CALL FOR ASSISTANCE.
[2019-11-28 05:26] LABS: HEMATOCRIT 33.6 % (37.0-47.0); IMMATURE GRANULOCYTES 1.3 % (0.0-5.0); MEAN CELL VOLUME 85.5 fL CALC (80.0-100.0); MEAN CORPUSCULAR HGB CONC 32.7 g/L CALC (32.0-36.0); NEUT# 3.76 thou/uL (2.00-7.15); RED BLOOD COUNT 3.93 mill/uL (4.20-5.60); RED CELL DISTRI WIDTH 15.4 % (11.5-15.5)
[2019-11-28 05:42] LABS: ALBUMIN 3.2 g/dL (3.2-5.0); ALKALINE PHOSPHATASE 333 u/l (38-126); BILIRUBIN, TOTAL 1.8 mg/dL (0.0-1.4); BUN 7 mg/dL (7-17); BUN/CREATININE RATIO 12 (12-20 (CALC)); CARBON DIOXIDE 26 mmol/l (22-30); CHLORIDE 102 mmol/l (95-108); CREATININE 0.6 mg/dL (0.5-1.0); GFR > 60 ML/MIN (>=60 (CALC)); GFR FOR AFR.AMER. > 60 ML/MIN (>=60 (CALC)); SGOT/AST 116 u/l (14-36); SODIUM 139 mmol/l (137-146); TOTAL PROTEIN 5.9 g/dL (6.3-8.2)
[2019-11-28 05:45] LABS: ANION GAP 14 (6-22 (CALC)); POTASSIUM 3.4 mmol/l (3.5-5.1)
--- NOTE | 2019-11-28 07:25 | NUR ---
PATIENT SLEPT WELL THROUGHOUT SHIFT . PATIENT HAS NO COMPLAINTS.
[2019-11-28 07:33] VITALS: BP 158/96
--- NOTE | 2019-11-28 08:00 | NUR ---
PATIENT REMAINS SLEEPING AT THIS TIME WITH EYES CLOSED. RESP ARE EVEN AND UNLABORED AT THIS TIME. CALL LIGHT IN REACH. WILL CONT TO MONITOR.
--- NOTE | 2019-11-28 10:00 | NUR ---
PATIENT SITTING UP ON THE SIDE OF THE BED-ATE WELL FPOR BREAKFAST. PATIENT WITH NO COMPLAINTS AT THIS TIME. AM MEDS WERE GIVEN ORDERED. SALINE LOCK TO LEFT HAND INTACT AND REMAINS HEALTHY AT THIS TIME. SAFETY PRECAUTIONS REINFORCED. CALL LIGHT IN REACH. WILL CONT TO MONITOR.
[2019-11-28 11:00] VITALS: BP 140/83
[2019-11-28 12:51] LABS: AMYLASE 61 u/l (30-110); LIPASE 449 u/l (23-300)
--- NOTE | 2019-11-28 13:00 | NUR ---
PATIENT RESTING IN BED-JUST FINISHED LUNCH. DIDN'T EAT MUCH. NEW ORDER FOR NUCLEAR GALLBLADDER STUDY RECIEVED. SPOKE WITH MALINI IN NUCLEAR MED AND STATES THAT PATIENT SHOULD BE NPO FOR 4 HOURS PRIOR TO STUDY-WILL PLAN ON DOING THE STUDY APPROX 1600. PATIENT ADVISED OF THE STATED. NPO UNTIL AFTER STUDY. CALL LIGHT IN REACH. WILL CONT TO MONITOR.
[2019-11-28 14:45] VITALS: BP 122/82
--- NOTE | 2019-11-28 16:00 | NUR ---
PATIENT TO NUCLEAR MED FOR GALLBLADDER STUDIES VIA WHEELCHAIR WITH VOLUNTEER.
--- NOTE | 2019-11-28 18:15 | NUR ---
PATIENT RETURNED FROM [facility] VIA WHEELCHAIR AND IV LEVAQUIN WAS HUNG ORDERED VIA LEFT H AND IV SITE. CALL LIGHT IN REACH. WILL CONT TO MONITOR.
--- NOTE | 2019-11-28 19:15 | NUR ---
REPORT LORI TY RN. PT SITTING UP IN BED WATCHING TV. ALERT AND ORIENTED. PT DENIES ANY PAIN OR DISCOMFORT. AFEBRILE AT THIS TIME. IV SITE APPEARS HEALTHY. DISCUSSED POC. PT VERBALIZED UNDERSTANDING. CALL LIGHT WITHIN REACH. WILL CONTINUE TO MONITOR.
[2019-11-28 19:50] VITALS: BP 127/80
--- NOTE | 2019-11-28 21:15 | NUR ---
ASSISTED PT TO SHOWER. COMPLETE LINEN CHANGE PROVIDED.
--- NOTE | 2019-11-29 01:38 | NUR ---
PT RESTING IN BED WITH EYES CLOSED. NO APPARENT DISTRESS NOTED. CALL LIGHT WITHIN REACH. WILL CONTINUE TO MONITOR.
[2019-11-29 03:30] VITALS: BP 153/84
[2019-11-29 05:34] LABS: HEMATOCRIT 35.3 % (37.0-47.0); HEMOGLOBIN 11.4 g/dl (12.0-16.0); IMMATURE GRANULOCYTES 2.3 % (0.0-5.0); MEAN CELL VOLUME 87.2 fL CALC (80.0-100.0); MEAN CORPUSCULAR HGB 28.1 pG CALC (26.0-32.0); MEAN CORPUSCULAR HGB CONC 32.3 g/L CALC (32.0-36.0); NEUT# 4.75 thou/uL (2.00-7.15); RED BLOOD COUNT 4.05 mill/uL (4.20-5.60); RED CELL DISTRI WIDTH 15.8 % (11.5-15.5)
[2019-11-29 05:54] LABS: ALBUMIN 3.5 g/dL (3.2-5.0); ALKALINE PHOSPHATASE 340 u/l (38-126); ANION GAP 13 (6-22 (CALC)); BILIRUBIN, TOTAL 1.3 mg/dL (0.0-1.4); BUN 8 mg/dL (7-17); BUN/CREATININE RATIO 13 (12-20 (CALC)); CARBON DIOXIDE 29 mmol/l (22-30); CHLORIDE 101 mmol/l (95-108); CREATININE 0.7 mg/dL (0.5-1.0); GFR > 60 ML/MIN (>=60 (CALC)); GFR FOR AFR.AMER. > 60 ML/MIN (>=60 (CALC)); POTASSIUM 3.5 mmol/l (3.5-5.1); SGOT/AST 94 u/l (14-36); SODIUM 140 mmol/l (137-146); TOTAL PROTEIN 6.2 g/dL (6.3-8.2)
[2019-11-29 06:52] VITALS: BP 138/78
--- NOTE | 2019-11-29 08:18 | NUR ---
PT RESTING QUIETLY IN BED. NO RESP DISTRESS NOTED. ASSESSMENT COMPLETED. NO COMPLAINTS VOICED AT THIS TIME. WILL CONTINUE TO MONITOR. CALL LIGHT WITHIN REACH.
[2019-11-29 09:04] VITALS: BP 138/78
--- NOTE | 2019-11-29 12:00 | NUR ---
PT RESTING IN ROOM IN BED. UP AMBULATING IN THE HALLWAYS. NO RESP. DISTRESS NOTED. NO COMPLAINTS VOICED. WILL CONTINUE TO MONITOR CONDITION. CALL LIGHT WITHIN REACH.
[2019-11-29] MEDS ORDERED: Levaquin PO (13:14)
--- NOTE | 2019-11-29 16:12 | NUR ---
Discharge instructions given. Patient verbalizes understanding of same. Discharged in stable condition via Wheelchair to Home with family. All belongings sent with pt. Sister her to transport patient home. Saline removed dry dressing applied. Site without redness or edema noted. Pt discharged via wheelchair. No resp. distress noted.
== END 2019-11-29 16:19 | disposition home or self-care (01) | DRG 864 ==
LOC: ED 22:01 → ED-I 22:30 → ED 11-25 02:22 → MS2 11-25 02:23
PROVIDERS: Emergency Medicine; Internal Medicine Infectious Disease; Nurse Practitioner Family; ADMIT Internal Medicine; ATTEND Internal Medicine
DX: R50.2 Drug induced fever (principal); G93.41 Metabolic encephalopathy; E87.1 Hypo-osmolality and hyponatremia; T42.6X5A Adverse effect of other antiepileptic and sedative-hypnotic drugs, initial encounter; T44.3X5A Adverse effect of other parasympatholytics [anticholinergics and antimuscarinics] and spasmolytics, initial encounter; R74.0 Nonspecific elevation of levels of transaminase and lactic acid dehydrogenase [LDH]; E87.6 Hypokalemia; J43.9 Emphysema, unspecified; I10 Essential (primary) hypertension; F31.9 Bipolar disorder, unspecified; F79 Unspecified intellectual disabilities; Z87.891 Personal history of nicotine dependence
CPT/HCPCS: A9537; G0378; J1956; J2805

== ENCOUNTER 2020-01-25 11:14 | Inpatient (IN) | payer MEDICARE ==
[2020-01-25] VITALS (8 sets, daily range): BP systolic 155–189; BP diastolic 91–101
[~2020-01-25] VITALS: Ht 172.7 cm; Wt 63.6 kg
--- NOTE | 2020-01-25 00:01 | NUR ---
awakens easily. meds given as ordered. instructed about fluid restriction.
[~2020-01-25 11:14] MED LIST changes: +TRILEPTAL150 M1 PO
--- NOTE | 2020-01-25 11:40 | NUR ---
PT TO ER PER EMS, VERY DROUSY BUT AROUSABLE AND WILL ANSWER QUESTIONS WHEN ASKED. MOVES ALL EXTREMEITIES WELL. FOLLOWS COMMANDS. PT REQUEST A WARM BLANKET AND STATES I AM SLEEPY JUST WANT TO GO TO SLEEP. DENIES ANY PAIN MEDICATIONS BUT HAS ALOT OF ANXIETY MEDICATIONS.
[2020-01-25 11:52] LABS: HEMATOCRIT 31.4 % (37.0-47.0); HEMOGLOBIN 10.6 g/dl (12.0-16.0); IMMATURE GRANULOCYTES 0.6 % (0.0-5.0); MEAN CELL VOLUME 83.7 fL CALC (80.0-100.0); MEAN CORPUSCULAR HGB 28.3 pG CALC (26.0-32.0); MEAN CORPUSCULAR HGB CONC 33.8 g/L CALC (32.0-36.0); NEUT# 3.62 thou/uL (2.00-7.15); RED BLOOD COUNT 3.75 mill/uL (4.20-5.60); RED CELL DISTRI WIDTH 14.6 % (11.5-15.5)
[2020-01-25 12:16] LABS: BUN 17 mg/dL (7-17); BUN/CREATININE RATIO 37 (12-20 (CALC)); CARBON DIOXIDE 24 mmol/l (22-30); CHLORIDE 93 mmol/l (95-108); CREATININE 0.5 mg/dL (0.5-1.0); GFR > 60 ML/MIN (>=60 (CALC)); GFR FOR AFR.AMER. > 60 ML/MIN (>=60 (CALC)); POTASSIUM 4.2 mmol/l (3.5-5.1); SGOT/AST 37 u/l (14-36)
[2020-01-25 12:26] LABS: ALKALINE PHOSPHATASE 65 u/l (38-126); ANION GAP 14 (6-22 (CALC)); BILIRUBIN, TOTAL 0.5 mg/dL (0.0-1.4); MYOGLOBIN 70 ng/mL (0 - 62); SODIUM 127 mmol/l (137-146)
--- NOTE | 2020-01-25 12:35 | NUR ---
PT RESTING QUIETLY ON STRETCHER, REQUESTING ANOTHER WARM BLANKET, GIVEN
[2020-01-25 13:15] LABS: URINE BILIRUBIN - DIPSTICK NEGATIVE (NEGATIVE); URINE BLOOD DIPSTICK TRACE-INTACT (NEGATIVE); URINE COLOR YELLOW; URINE GLUCOSE - DIPSTICK NEGATIVE (NEGATIVE); URINE KETONE TRACE mg/dL (NEGATIVE); URINE PROTEIN - DIPSTICK 100 mg/dL (NEG-TRACE); URINE SPECIFIC GRAVITY >=1.030; URINE UROBILINOGEN - DIPSTICK 0.2 E.U./dL (0.2)
[2020-01-25 13:21] LABS: URINE LEUK ESTERASE MODERATE (NEGATIVE); URINE NITRITE - DIPSTICK POSITIVE (Negative)
[2020-01-25 13:22] LABS: COCAINE NEGATIVE (NEGATIVE); METHADONE NEGATIVE (NEGATIVE); TRICYLIC ANTIDEPRESSANTS POSITIVE (NEGATIVE)
[2020-01-25 13:23] LABS: BARBITURATES NEGATIVE (NEGATIVE); OXCYCODONE NEGATIVE (NEGATIVE)
[2020-01-25 13:29] LABS: TETRAHYDROCANNABIONOL NEGATIVE (NEGATIVE)
[2020-01-25 13:39] LABS: URINE BACTERIA MANY hpf; URINE SQUAMOUS EPITHELIAL CELL FEW EPI/hpf (0-FEW); URINE WBC TNTC WBC/hpf (0-5)
--- NOTE | 2020-01-25 13:52 | NUR ---
PT REQUESTING LIGHTS OFF , HARD TO WAKE UP WHEN GOING INTO ROOM, DR. GRIER NOTIFIED AND WENT WITH THIS STAFF TO ROOM, PT SPEAKING WITH DR. GRIER WITH SLIGHTLY SLURRED SPEACH, WHICH HE FEELS IS FROM OVERDOSING ON HER MEDICATIONS FOR SLEEPING AND ANXIETY.
--- NOTE | 2020-01-25 15:13 | NUR ---
PT REPORT CALLED AND PT TAKEN TO ICU PER STRETCHER WITH MONITER.
--- NOTE | 2020-01-25 15:41 | NUR ---
PT ARRIVED TO UNIT AT 1700 VIA STRETCHER WITH ER STAFF; ASSISTED SELF FROM STRETCHER TO BED WITH 3 PERSON ASSIST. DROWSY AND ORIENTED X 3; DOES TAKE SOME REDIRECTION TO GET ACCURATE ANSWERS. PT HAS SLURRED SPEECH; STATES THAT IS BECAUSE SHE IS MISSING HER UPPER DENTURES; HAS DELAYED SLOW RESPONSES. OTHERWISE NEURO CHECK IS WNL. C/O HEAD, NECK, AND BACK PAIN THAT COMES AND GOES 9/10. RESPIRATIONS EVEN AND UNLABORED ON ROOM AIR. PURWIK CATHETER PLACED DUE TO HIGH FALL RISK. IV FLUIDS INITATED; IV SITE APPEARS HEALTHY. LUIS HOSE APPLIED TO BLE. ORIENTED TO ROOM AND CALL LIGHT SYSTEM. PLAN OF CARE DISCUSSED. PT ENCOURAGED TO VERBALIZE CONCERNS. STATES UNDERSTANDING. CURRENTLY TALKING TO SISTER ON THE PHONE. SAFETY MEASURES IN PLACE INCLUDING BED ALARM. CALL LIGHT WITHIN REACH.
--- NOTE | 2020-01-25 17:17 | NUR ---
SISTER CALLED FOR UPDATE. PT SR WITH 1ST DEGREE AVB ON MONITOR.
--- NOTE | 2020-01-25 19:00 | NUR ---
awakens but remains drowsy. denies distress. speech remains slurred. teletypesetter monitor shows sinus rhythm hr 63. #20 rac ns infusing @ 100cchr. po fluids taken well. purewick cath in place & leaked. linen changed & purewick replaced. urine cloudy yellow. fall precautions cont.
--- NOTE | 2020-01-25 19:50 | NUR ---
awake. but drowsy. speech remains slurred. requested coffee. request denied d/t drowsiness.
--- NOTE | 2020-01-25 20:30 | NUR ---
entered pts room. pt said "did you just come on? are you here all night?" instructed pt this junior underwriter was her nurse & had been in her room several times since the shift started. pt verbalized understanding. pt said "that's part of my disability. i can't remember." asked pt about her drowsiness & slurred speech. pt denied overmedicating self.
[2020-01-26] VITALS (11 sets, daily range): BP systolic 100–159; BP diastolic 66–84
--- NOTE | 2020-01-26 02:00 | NUR ---
resting quietly. resps even & unlabored. no apparent distress.
--- NOTE | 2020-01-26 04:00 | NUR ---
eyes closed. no distress. engineer intern shows sinus rhythm 1st degree avb hr 72.
--- NOTE | 2020-01-26 04:30 | NUR ---
lab here. blood drawn. bed wet. up to bsc. voided. urine remains cloudy yellow. assisted to chair. am care given per self. linen changed. pt requested coffee & juice. instructed again about fluid restriction. coffee given. pt verbalized understanding. speech much better this am. no slurring.
[2020-01-26 04:59] LABS: IMMATURE GRANULOCYTES 0.4 % (0.0-5.0); MEAN CELL VOLUME 84.6 fL CALC (80.0-100.0); MEAN CORPUSCULAR HGB 28.3 pG CALC (26.0-32.0); MEAN CORPUSCULAR HGB CONC 33.4 g/L CALC (32.0-36.0); NEUT# 6.54 thou/uL (2.00-7.15); RED BLOOD COUNT 4.92 mill/uL (4.20-5.60); RED CELL DISTRI WIDTH 14.6 % (11.5-15.5)
[2020-01-26 05:12] LABS: HEMATOCRIT 41.6 % (37.0-47.0); HEMOGLOBIN 13.9 g/dl (12.0-16.0)
[2020-01-26 05:22] LABS: ANION GAP 17 (6-22 (CALC)); BILIRUBIN, TOTAL 0.8 mg/dL (0.0-1.4); BUN 8 mg/dL (7-17); BUN/CREATININE RATIO 19 (12-20 (CALC)); CARBON DIOXIDE 25 mmol/l (22-30); CHLORIDE 91 mmol/l (95-108); CREATININE 0.4 mg/dL (0.5-1.0); GFR > 60 ML/MIN (>=60 (CALC)); GFR FOR AFR.AMER. > 60 ML/MIN (>=60 (CALC)); POTASSIUM 4.3 mmol/l (3.5-5.1); SGOT/AST 48 u/l (14-36); SODIUM 129 mmol/l (137-146); TOTAL PROTEIN 8.9 g/dL (6.3-8.2)
[2020-01-26 05:24] LABS: ALKALINE PHOSPHATASE 110 u/l (38-126)
--- NOTE | 2020-01-26 06:00 | NUR ---
remains in chair. brushing tangles out of hair.
--- NOTE | 2020-01-26 09:00 | NUR ---
PT RESTING IN BED WITH EYES CLOSED, PT AROUSED TO VERBAL STIMULI INFORMED PT THAT BREAKFAST TRAY WAS PROVIDED. PT BEGAN EATING HER SCHNEIDER RN LONG TERM CARE DISCUSSING MEDICATIONS WITH PT. OBSERVED PT WHILE EATING AND NOTED SCHNEIDER WAS DANGLING FROM MOUTH SHE CHEWED AND PT WAS GRABBING FOR THE OTHER PIECE OF SCHNEIDER ON TRAY. INFORMED PT THAT SHE HAD SCHNEIDER HANGING FROM HER MOUTH. PT THEN REACHED FOR SCHNEIDER FROM MOUTH AND SAID "OH" WHEN DISCUSSING MEDS. WHEN ASKING PT REGARDING MEDS PT STATES "I HOPE THEY DONT STOP MY MEDICATIONS BECAUSE I NEED ALL MY MEDS AND IF THEY STOP THEM THEN DR FORD WILL TAKE ME OFF MY MEDS THEN I WILL HAVE TO GET OFF OF DISABLILITY AND GET A JOB" PT MEDICATED PER EMAR, CALL LIGHT IN REACH,CONTINUE TO MONITOR.
--- NOTE | 2020-01-26 09:45 | NUR ---
ENTERED ROOM NOTED PT SITTING ON SIDE OF BED ATTEMPTING TO GET UP, NOTED PT TANGLED IN IV LINE AND CORDS TO MACHINE. ENCOURAGED PT TO USE CALL LIGHT WHEN GETTING UP. ASSISTED PT TO BSC. CALL LIGHT IN REACH,CONTINUE TO MONITOR.
--- NOTE | 2020-01-26 11:01 | NUR ---
MD AT BEDSIDE TO DISCUSS POC
--- NOTE | 2020-01-26 12:02 | NUR ---
ASSISTED PT TO RECLINER AT BEDSIDE TO EACH LUNCH, CALL LIGHT IN REACH,CONTINUE TO MONITOR.
--- NOTE | 2020-01-26 12:43 | NUR ---
PT GETTING UP OUT OF RECLINER, AGAIN INSTRUCTED PT TO USE CALL LIGHT. PT STATES SHE IS TRYING TO FIX HER BED. LINENS FIXED TO BED, PT STILL IN RECLINER BED ALARM PLACED FOR SAFETY. CALL LIGHT IN REACH,CONTINUE TO MONITOR.
--- NOTE | 2020-01-26 13:55 | NUR ---
RECEIVED ORDERS TO TRANSFER PT TO [facility] WITH TELE, ATTEMPTED ANOTHER IV SITE; ATTEMPT UNSUCCESSFUL. EMS SITE TO RAC GIVE GOOD BLOOD RETURN FLUSHES WELL. DISCUSSED TRANFER WITH PT, VERBALIZED UNDERSTANDING. PT STATES SHE WOULD RATHER BE GOING HOME. IV ANTIBIOTIC INFUSION INITIATED. CALL LIGHT IN REACH,CONTINUE TO MONITOR.
--- NOTE | 2020-01-26 15:24 | NUR ---
PT ARRIVED VIA WC WITH STAFF. IV SITE IS FREE FROM REDNESS OR EDEMA. CONTINUE TO OSBERVE AND MONITOR.
--- NOTE | 2020-01-26 15:34 | NUR ---
PT TRANSFERRED TO [facility] VIA WHEELCHAIR ACCOMPANIED BY RIG BUILDER AND CEMENTING BULK MATERIAL OPERATOR, PT SITTING IN CHAIR, CALL LIGHT IN REACH,CONTINUE TO MONITOR.
--- NOTE | 2020-01-26 16:15 | NUR ---
PT WAS SITTING IN THE CHAIR, NOW BACK TO BED WITH ASSISTANCE. AFTER VOIDING. CONTINUE TO OBSERVE AND MONITOR. IV SITE IS FREE FROM REDNESS OR EDEMA.
--- NOTE | 2020-01-26 19:20 | NUR ---
REPORT RECEIVED FROM DAY NURSE. DAY NURSE AND MYSELF IN TO SEE PT. PT IS SITTING ON THE SIDE OF THE BED STATING SHE FEELS BETTER AND TELLING ME ABOUT HER DOG. NO S/O DISTRESS NOTED. PT ASKING FOR MORE PO FLUIDS TO DRINK, PROVIDED 60CC OF JUICE/REQUEST.
--- NOTE | 2020-01-26 20:35 | NUR ---
PT MEDICATED ORDERS PROVIDE AND ASSESSMENT COMPLETED AT THIS TIME. PT IS TALKATIVE, ASSISTED PT TO RESTROOM AND BACK TO BED. BED ALARM ON. ENCOURAGED PT TO CALL NEEDS ARISE, CALL LIGHT W/IN REACH.
--- NOTE | 2020-01-27 01:20 | NUR ---
PT IS SLEEPING AT THIS TIME. NO S/O DISTRESS NOTED
[2020-01-27 04:02] VITALS: BP 126/77
--- NOTE | 2020-01-27 05:47 | NUR ---
PT IVF REPLENISHED, SHE WAS SLEEPING SOUNDLY. NO S/O DISTRESS NOTED. CALL LIGHT W/IN REACH.
[2020-01-27 07:40] VITALS: BP 122/67
--- NOTE | 2020-01-27 07:40 | NUR ---
ASSESSMENT IS COMPLETED: IV SITE IS FREE FROM REDNESS OR EDEMA. HR IS REG,PULSES ARE STRONG X4, ABD IS SOFT WITH ACTIVE BS. BREATH SOUNDS ARE CLEAR BILATERALLY. TELE MONITOR IN PLACE. CONTINUE TO OBSERVE AND MONITOR.
--- NOTE | 2020-01-27 09:41 | NUR ---
FAMILY INQUIRING IF SHE CAN GET NEBULIZER MEDICATIONAND INHALER FOR HOME
[2020-01-27 11:10] VITALS: BP 126/72
--- NOTE | 2020-01-27 11:34 | NUR ---
PT INQUIRING ABOUT "BIOTINE, INHALER AND NEB FOR HOME". INFORMED THAT HER SISTER DID CALL AND INQUIRE ABOUT THIS IN THE AM. WILL INFORM DR IF PLANS FOR DISCHARGE.
[2020-01-27 11:39] LABS: ANION GAP 9 (6-22 (CALC)); BUN 9 mg/dL (7-17); BUN/CREATININE RATIO 20 (12-20 (CALC)); CARBON DIOXIDE 26 mmol/l (22-30); CHLORIDE 106 mmol/l (95-108); CREATININE 0.5 mg/dL (0.5-1.0); GFR > 60 ML/MIN (>=60 (CALC)); GFR FOR AFR.AMER. > 60 ML/MIN (>=60 (CALC)); POTASSIUM 3.8 mmol/l (3.5-5.1); SODIUM 137 mmol/l (137-146)
--- NOTE | 2020-01-27 12:30 | NUR ---
PT IS SITTING ON THE SIDE OF THE BED WITH NO DISTRESS NOTED. IV SITE IS FREE FROM REDNESS OR EDEMA.
[2020-01-27] MEDS ORDERED: VANTIN100 MG PO (12:41)
--- NOTE | 2020-01-27 14:18 | NUR ---
DISCHARGE INSTRUCTIONS GIVEN AND VERBALIZED UNDERSTANDING. IV SITE DISCONITNUED CATHETER INTACT,. NO REDNESS OR EDEMA. Discharge instructions given. Patient verbalizes understanding of same. Discharged in stable condition via Wheelchair to Home with family. All belongings sent with pt.
== END 2020-01-27 14:18 | disposition home or self-care (01) | DRG 917 ==
LOC: ED 11:14 → ED-I 13:43 → ED 14:10 → ICU 14:11 → MS2 01-26 15:22
PROVIDERS: Emergency Medicine; Internal Medicine; Nurse Practitioner Family; ADMIT Internal Medicine; ATTEND Internal Medicine
DX: T43.91XA Poisoning by unspecified psychotropic drug, accidental (unintentional), initial encounter (principal); G92 Toxic encephalopathy; N39.0 Urinary tract infection, site not specified; E87.1 Hypo-osmolality and hyponatremia; F31.9 Bipolar disorder, unspecified; R41.3 Other amnesia; F43.10 Post-traumatic stress disorder, unspecified; B96.89 Other specified bacterial agents as the cause of diseases classified elsewhere; Y92.009 Unspecified place in unspecified non-institutional (private) residence as the place of occurrence of the external cause
CPT/HCPCS: J1650

== ENCOUNTER 2020-02-07 | Emergency (ER) | payer MEDICARE ==
[~2020-02-07] MED LIST changes: +VANTIN100 MG PO
[2020-02-07 15:40] LABS: HEMATOCRIT 38.1 % (37.0-47.0); HEMOGLOBIN 12.3 g/dl (12.0-16.0); IMMATURE GRANULOCYTES 0.4 % (0.0-5.0); MEAN CELL VOLUME 87.6 fL CALC (80.0-100.0); MEAN CORPUSCULAR HGB 28.3 pG CALC (26.0-32.0); MEAN CORPUSCULAR HGB CONC 32.3 g/L CALC (32.0-36.0); NEUT# 5.37 thou/uL (2.00-7.15); RED BLOOD COUNT 4.35 mill/uL (4.20-5.60); RED CELL DISTRI WIDTH 14.8 % (11.5-15.5)
[2020-02-07 15:50] LABS: ALBUMIN 4.8 g/dL (3.2-5.0); ALKALINE PHOSPHATASE 83 u/l (38-126); BUN 13 mg/dL (7-17); BUN/CREATININE RATIO 18 (12-20 (CALC)); CARBON DIOXIDE 31 mmol/l (22-30); CHLORIDE 100 mmol/l (95-108); CREATININE 0.7 mg/dL (0.5-1.0); ETHYL ALCOHOL 0 mg/dl (0-30); GFR > 60 ML/MIN (>=60 (CALC)); GFR FOR AFR.AMER. > 60 ML/MIN (>=60 (CALC)); SGOT/AST 49 u/l (14-36); SODIUM 139 mmol/l (137-146); TOTAL PROTEIN 8.2 g/dL (6.3-8.2)
[2020-02-07 15:55] LABS: ANION GAP 13 (6-22 (CALC)); BILIRUBIN, TOTAL 0.4 mg/dL (0.0-1.4); POTASSIUM 4.6 mmol/l (3.5-5.1)
[2020-02-07 16:08] LABS: ACT PARTIAL THROMBO TIME 24.4 SECONDS (20.0-32.5); PROTHROMBIN TIME 10.7 SECONDS (9.0-12.5)
[2020-02-07 17:51] LABS: URINE BILIRUBIN - DIPSTICK NEGATIVE (NEGATIVE); URINE BLOOD DIPSTICK TRACE-LYSED (NEGATIVE); URINE COLOR YELLOW; URINE GLUCOSE - DIPSTICK NEGATIVE (NEGATIVE); URINE KETONE NEGATIVE (NEGATIVE); URINE LEUK ESTERASE LARGE (Negative); URINE NITRITE - DIPSTICK NEGATIVE (Negative); URINE PH 6.5 (4.5-8.0); URINE PROTEIN - DIPSTICK NEGATIVE (NEG-TRACE); URINE SPECIFIC GRAVITY <=1.005; URINE UROBILINOGEN - DIPSTICK 0.2 E.U./dL (0.2)
[2020-02-07 17:56] LABS: URINE CLARITY TURBID
[2020-02-07 17:58] LABS: BARBITURATES NEGATIVE (NEGATIVE); COCAINE NEGATIVE (NEGATIVE); METHADONE NEGATIVE (NEGATIVE); OXCYCODONE NEGATIVE (NEGATIVE); TETRAHYDROCANNABIONOL NEGATIVE (NEGATIVE); TRICYLIC ANTIDEPRESSANTS NEGATIVE (NEGATIVE)
[2020-02-07 18:20] LABS: URINE BACTERIA FEW hpf; URINE SQUAMOUS EPITHELIAL CELL MANY EPI/hpf (0-FEW); URINE WBC TNTC WBC/hpf (0-5)
== END 2020-02-07 20:02 | disposition home or self-care (01) ==
PROVIDERS: Emergency Medicine
DX: R55 Syncope and collapse (principal); M54.2 Cervicalgia

== ENCOUNTER 2020-09-23 15:37 | Observation (INO) | payer MEDICARE ==
[~2020-09-23] VITALS: Ht 172.7 cm; Wt 78.2 kg
--- NOTE | 2020-09-23 15:37 | NUR ---
PATIENT TO ROOM VIA EMS AND PHYSICIAN AT BEDSIDE FOR EVAL
--- NOTE | 2020-09-23 16:00 | NUR ---
PT STATES THAT SHE WAS IN THE KITCHEN WHEN ALL OF A SUDDEN SHE WAS STARING INTO SPACE AND WOKE UP ON THE FLOOR. SHE IS NOT SURE HOW LONG SHE WAS DOWN. SHE HIT THE RIGHT SIDE OF HEAD AND HAS NECK PAIN. SHE ARRIVED BY EMS WITH COLLAR. AOX4. PMS+ IN ALL EXTREM. DENIES ANY OTHER S/S BUT A HEADACHE. WILL CONTINUE TO MONITOR.
[2020-09-23] MEDS ORDERED: PROPRANOLOL HCL40 MG PO (16:24)
[2020-09-23] MEDS ORDERED: TEMAZEPAM30 MG PO (16:25)
[2020-09-23 16:46] LABS: HEMATOCRIT 38.2 % (37.0-47.0); HEMOGLOBIN 12.4 g/dl (12.0-16.0); IMMATURE GRANULOCYTES 0.4 % (0.0-5.0); MEAN CELL VOLUME 88.2 fL CALC (80.0-100.0); MEAN CORPUSCULAR HGB 28.6 pG CALC (26.0-32.0); MEAN CORPUSCULAR HGB CONC 32.5 g/dL CAL (32.0-36.0); NEUT# 4.67 thou/uL (2.00-7.15); RED BLOOD COUNT 4.33 mill/uL (4.20-5.60); RED CELL DISTRI WIDTH 14.2 % (11.5-15.5)
--- NOTE | 2020-09-23 17:10 | NUR ---
KAYLIN PLACED ON PT.
[2020-09-23 17:14] LABS: ALBUMIN 4.1 g/dL (3.2-5.0); ALKALINE PHOSPHATASE 69 u/l (38-126); ANION GAP 15 (6-22 (CALC)); BILIRUBIN, TOTAL 0.3 mg/dL (0.0-1.4); BUN 14 mg/dL (7-17); BUN/CREATININE RATIO 20 (12-20 (CALC)); CARBON DIOXIDE 25 mmol/l (22-30); CHLORIDE 96 mmol/l (95-108); CREATININE 0.7 mg/dL (0.5-1.0); ETHYL ALCOHOL 0 mg/dl (0-30); GFR > 60 ML/MIN (>=60 (CALC)); GFR FOR AFR.AMER. > 60 ML/MIN (>=60 (CALC)); LIPASE 139 u/l (23-300); POTASSIUM 4.7 mmol/l (3.5-5.1); SGOT/AST 65 u/l (14-36); TOTAL PROTEIN 6.9 g/dL (6.3-8.2)
[2020-09-23 17:16] LABS: SODIUM 131 mmol/l (137-146)
[2020-09-23 17:25] LABS: MYOGLOBIN 22 ng/mL (0 - 62)
--- NOTE | 2020-09-23 17:45 | NUR ---
PT WAS REMINDED OF NEEDED URINE, SHE STATES THAT SHE IS UNABLE TO DO SO AT THIS TIME. P[place]ICK IS IN PLACE AND SUCTION GOING.
--- NOTE | 2020-09-23 18:51 | NUR ---
RECIEVED REPORT FROM ESTER
--- NOTE | 2020-09-23 18:52 | NUR ---
GAVE REPORT TO ESTER
--- NOTE | 2020-09-23 19:31 | NUR ---
PT TO FLOOR VIA STRETCHER. AMBULATORY TO ROOM FROM BOWSER. TO BR. AGOSTO.
--- NOTE | 2020-09-23 19:35 | NUR ---
PT ARRIVED TO [facility] VIA STRETCHER ACCOMPANIED BY ED NURSE. PT APPEARS TO BE STABLE AT THIS TIME. UPON ENTERING THE ROOM, PT IMMEDIATELY ASKED FOR COFFEE, TO USE THE RESTROOM, FOR A COMB AND WASHCLOTH/ ALL PROVIDED. PT AMBULATED STABLE, BUT HAS BEEN INSTRUCTED TO CALL FOR STANDBY ASSISTANCE DUE TO REPORTED HISTORY OF FALLS AND ADMITTED FOR SYNCOPAL EPISODE. V/S ASSESSED, PT ORIENTED TO ROOM, CALL SYSTEM, LIGHTS, TV AND BED.
[2020-09-23 19:41] VITALS: BP 170/87
[2020-09-23 19:52] LABS: URINE BILIRUBIN - DIPSTICK NEGATIVE (NEGATIVE); URINE BLOOD DIPSTICK NEGATIVE (NEGATIVE); URINE COLOR YELLOW; URINE GLUCOSE - DIPSTICK NEGATIVE (NEGATIVE); URINE KETONE NEGATIVE (NEGATIVE); URINE NITRITE - DIPSTICK NEGATIVE (Negative); URINE PROTEIN - DIPSTICK NEGATIVE (NEG-TRACE); URINE UROBILINOGEN - DIPSTICK 0.2 E.U./dL (0.2)
[2020-09-23 19:53] LABS: URINE LEUK ESTERASE TRACE (NEGATIVE)
[2020-09-23 21:55] VITALS: BP 172/88
--- NOTE | 2020-09-23 21:59 | NUR ---
PT MEDICATED ORDERS PROVIDE AND PROVIDED WITH TV DINNER PER REQUEST. PT DENIES DISTRESS, DIZZINESS, SOB, PAIN,N/V OR ANY OTHER DISTRESSES. PT ENCOURAGED TO CALL NEEDS ARISE, VERBALIZED UNDERSTANDING.
[2020-09-24 00:22] VITALS: BP 113/73
--- NOTE | 2020-09-24 01:40 | NUR ---
IVP BATTERY SOUNDING, UPON ENTERING ROOM PT WAS AWAKE WITH LIGHTS AND TV ON. PT ASKED FOR BED TO BE STRAIGTENED, ASSISTED PT WITH BED, NO S/O DISTRESS AT THIS TIME AND PT ENCOURAGED TO CALL NEEDS ARISE.
--- NOTE | 2020-09-24 04:15 | NUR ---
PT SLEEPING, NO S/O DISTRESS NOTED. CALL LIGHT AT SIDE.
[2020-09-24 04:32] VITALS: BP 102/67
[2020-09-24 04:39] VITALS: BP 133/82
[2020-09-24 05:31] LABS: HEMATOCRIT 40.1 % (37.0-47.0); HEMOGLOBIN 12.8 g/dl (12.0-16.0); IMMATURE GRANULOCYTES 0.7 % (0.0-5.0); MEAN CELL VOLUME 88.3 fL CALC (80.0-100.0); MEAN CORPUSCULAR HGB 28.2 pG CALC (26.0-32.0); MEAN CORPUSCULAR HGB CONC 31.9 g/dL CAL (32.0-36.0); NEUT# 4.12 thou/uL (2.00-7.15); RED BLOOD COUNT 4.54 mill/uL (4.20-5.60); RED CELL DISTRI WIDTH 14.4 % (11.5-15.5)
[2020-09-24 05:58] LABS: ALBUMIN 4.2 g/dL (3.2-5.0); ALKALINE PHOSPHATASE 69 u/l (38-126); ANION GAP 13 (6-22 (CALC)); BILIRUBIN, TOTAL 0.3 mg/dL (0.0-1.4); BUN 11 mg/dL (7-17); BUN/CREATININE RATIO 17 (12-20 (CALC)); CARBON DIOXIDE 27 mmol/l (22-30); CHLORIDE 102 mmol/l (95-108); CREATININE 0.6 mg/dL (0.5-1.0); GFR > 60 ML/MIN (>=60 (CALC)); GFR FOR AFR.AMER. > 60 ML/MIN (>=60 (CALC)); POTASSIUM 4.7 mmol/l (3.5-5.1); SGOT/AST 66 u/l (14-36); SODIUM 137 mmol/l (137-146); TOTAL PROTEIN 7.2 g/dL (6.3-8.2)
[2020-09-24 07:55] VITALS: BP 131/77
--- NOTE | 2020-09-24 07:55 | NUR ---
PT SITTING IN BED. A&O X3. NO DISTRESS NOTED. PT REPORTS SYNCOPAL EPISODE BUT NOT RECALLING EXACTLY WHAT HAPPENED, ALL SHE REMEMBERS WAS STANDING AT THE KITCHEN COUNTER, THEN SEEING EVERYONE SURROUND HER AND ENDING UP AT THE HOSPITAL. DENIES ANY PAIN AT THIS TIME. ASSESSMENT COMPLETED. DISCUSSED POC. CALL LIGHT IN REACH. CONTINUE TO MONITOR.
--- NOTE | 2020-09-24 08:05 | NUR ---
Patient is screened for PT intervention and would benefit from consult if medical agrees
[2020-09-24 11:29] VITALS: BP 142/95
--- NOTE | 2020-09-24 14:12 | NUR ---
FLU VACCINE GIVEN PRIOR TO D/C. 0.5 ML GIVEN TO LT ARM.PT TOLERATED WELL.
--- NOTE | 2020-09-24 14:20 | NUR ---
Discharge instructions given. Patient verbalizes understanding of same. Discharged in stable condition via Wheelchair to home accompanied by family and staff. Pt instructed to see PCP and urogynecology physician along with holding propanolol until seen. Pt and sister verablized understanding. All belongings sent with pt.
== END 2020-09-24 14:20 | disposition home or self-care (01) ==
LOC: ED 15:37 → MS2 17:56 → ED-I 18:30 → ED 18:30 → ED-I 18:31 → MS2 09-24 14:20
PROVIDERS: Nurse Practitioner Family; ADMIT Internal Medicine; ATTEND Internal Medicine
DX: I95.2 Hypotension due to drugs (principal); R00.1 Bradycardia, unspecified; T44.7X5A Adverse effect of beta-adrenoreceptor antagonists, initial encounter; F31.9 Bipolar disorder, unspecified; J45.909 Unspecified asthma, uncomplicated; Z23 Encounter for immunization; Z20.828 Contact with and (suspected) exposure to other viral communicable diseases
CPT/HCPCS: G0378

== ENCOUNTER 2021-03-22 | Observation (INO) | payer MEDICARE ==
[~2021-03-22] MED LIST changes: +PROPRANOLOL HCL40 MG PO
[2021-03-22 16:30] LABS: GFR 57 ML/MIN (>=60 (CALC)); GFR FOR AFR.AMER. > 60 ML/MIN (>=60 (CALC))
[2021-03-22 16:33] LABS: IMMATURE GRANULOCYTES 0.4 % (0.0-5.0); MEAN CELL VOLUME 88.8 fL CALC (80.0-100.0); MEAN CORPUSCULAR HGB 28.6 pG CALC (26.0-32.0); MEAN CORPUSCULAR HGB CONC 32.2 g/dL CAL (32.0-36.0); NEUT# 5.22 thou/uL (2.00-7.15); RED BLOOD COUNT 3.74 mill/uL (4.20-5.60); RED CELL DISTRI WIDTH 14.3 % (11.5-15.5)
[2021-03-22 16:37] LABS: HEMATOCRIT 33.2 % (37.0-47.0); HEMOGLOBIN 10.7 g/dl (12.0-16.0)
[2021-03-22 16:43] LABS: ALBUMIN 3.6 g/dL (3.2-5.0); ALKALINE PHOSPHATASE 47 u/l (38-126); BUN 16 mg/dL (7-17); BUN/CREATININE RATIO 16 (12-20 (CALC)); CARBON DIOXIDE 23 mmol/l (22-30); CHLORIDE 103 mmol/l (95-108); GFR 57 ML/MIN (>=60 (CALC)); GFR FOR AFR.AMER. > 60 ML/MIN (>=60 (CALC)); SGOT/AST 98 u/l (14-36); SODIUM 132 mmol/l (137-146); TOTAL PROTEIN 6.5 g/dL (6.3-8.2)
[2021-03-22 16:58] LABS: ANION GAP 9 (6-22 (CALC)); BILIRUBIN, TOTAL 0.6 mg/dL (0.0-1.4); POTASSIUM 3.4 mmol/l (3.5-5.1)
[2021-03-22 18:19] LABS: URINE BILIRUBIN - DIPSTICK NEGATIVE (NEGATIVE); URINE BLOOD DIPSTICK NEGATIVE (NEGATIVE); URINE COLOR YELLOW; URINE GLUCOSE - DIPSTICK NEGATIVE (NEGATIVE); URINE KETONE NEGATIVE (NEGATIVE); URINE PROTEIN - DIPSTICK NEGATIVE (NEG-TRACE); URINE UROBILINOGEN - DIPSTICK 0.2 E.U./dL (0.2)
[2021-03-22 18:21] LABS: URINE LEUK ESTERASE MODERATE (NEGATIVE); URINE NITRITE - DIPSTICK POSITIVE (Negative)
[2021-03-22 18:28] LABS: URINE BACTERIA MODERATE hpf; URINE SQUAMOUS EPITHELIAL CELL MODERATE EPI/hpf (0-FEW)
[2021-03-22 19:35] VITALS: BP 151/81
[2021-03-23] VITALS: BP 142/85
[2021-03-23 04:00] VITALS: BP 135/85
[2021-03-23 05:02] LABS: HEMATOCRIT 37.3 % (37.0-47.0); HEMOGLOBIN 11.6 g/dl (12.0-16.0); IMMATURE GRANULOCYTES 0.6 % (0.0-5.0); MEAN CELL VOLUME 90.1 fL CALC (80.0-100.0); MEAN CORPUSCULAR HGB CONC 31.1 g/dL CAL (32.0-36.0); NEUT# 7.8 thou/uL (2.00-7.15); RED BLOOD COUNT 4.14 mill/uL (4.20-5.60); RED CELL DISTRI WIDTH 14.4 % (11.5-15.5)
[2021-03-23 05:26] LABS: ALBUMIN 3.9 g/dL (3.2-5.0); ALKALINE PHOSPHATASE 64 u/l (38-126); ANION GAP 13 (6-22 (CALC)); BILIRUBIN, TOTAL 0.5 mg/dL (0.0-1.4); BUN 12 mg/dL (7-17); BUN/CREATININE RATIO 18 (12-20 (CALC)); CARBON DIOXIDE 23 mmol/l (22-30); CHLORIDE 106 mmol/l (95-108); CREATININE 0.7 mg/dL (0.5-1.0); GFR > 60 ML/MIN (>=60 (CALC)); GFR FOR AFR.AMER. > 60 ML/MIN (>=60 (CALC)); SGOT/AST 143 u/l (14-36); SODIUM 138 mmol/l (137-146); TOTAL PROTEIN 6.8 g/dL (6.3-8.2)
[2021-03-23 05:27] LABS: POTASSIUM 4.4 mmol/l (3.5-5.1)
[2021-03-23 07:15] VITALS: BP 133/78
[2021-03-23] MEDS ORDERED: FLUOXETINE20 MG PO (09:01)
[2021-03-23] MEDS ORDERED: ABILIFY MYCITE5 MG PO (09:02)
[2021-03-23] MEDS ORDERED: TIZANIDINE4 MG PO (09:03)
[2021-03-23] MEDS ORDERED: RISPERIDONE2 MG PO (09:03)
[2021-03-23] MEDS ORDERED: HYZAAR1 TA2 PO (09:04)
[2021-03-23] MEDS ORDERED: DONEPEZIL HCL10 M1 PO (09:05)
[2021-03-23] MEDS ORDERED: INCRUSE EL62.5 MCG/I IN (09:06)
[2021-03-23] MEDS ORDERED: OMNICEF300 MG PO (10:04)
[2021-03-23] MEDS ORDERED: COZAAR25 MG PO (10:06)
[2021-03-23 10:50] VITALS: BP 138/55
== END 2021-03-23 13:57 | disposition home or self-care (01) ==
PROVIDERS: Family Medicine; Nurse Practitioner Family; ADMIT Internal Medicine
DX: I95.9 Hypotension, unspecified (principal); N39.0 Urinary tract infection, site not specified; J44.9 Chronic obstructive pulmonary disease, unspecified; F31.9 Bipolar disorder, unspecified; R00.1 Bradycardia, unspecified; F06.8 Other specified mental disorders due to known physiological condition; F43.9 Reaction to severe stress, unspecified; M54.9 Dorsalgia, unspecified; G89.29 Other chronic pain; B96.20 Unspecified Escherichia coli [E. coli] as the cause of diseases classified elsewhere; Z91.013 Allergy to seafood; Z87.01 Personal history of pneumonia (recurrent); Z20.822 Contact with and (suspected) exposure to COVID-19
CPT/HCPCS: G0378; J1650; Q9967

== ENCOUNTER 2021-05-10 10:36 | Emergency (ER) | payer MEDICARE ==
[~2021-05-10] VITALS: Ht 172.7 cm; Wt 89.0 kg
[~2021-05-10 10:36] MED LIST changes: +ABILIFY MYCITE5 MG PO; +COZAAR25 MG PO; +DONEPEZIL HCL10 M1 PO; +HYZAAR1 TA2 PO; +INCRUSE EL62.5 MCG/I IN; +OMNICEF300 MG PO; +RISPERIDONE2 MG PO; +TIZANIDINE4 MG PO
[2021-05-10] MEDS ORDERED: ARIPIPRAZOLE5 MG PO (11:22)
[2021-05-10] MEDS ORDERED: CELECOXIB200 MG PO (11:24)
[2021-05-10] MEDS ORDERED: DOXEPIN HYDROCH PO (11:25)
[2021-05-10 12:44] VITALS: BP 112/80
== END 2021-05-10 12:44 | disposition home or self-care (01) ==
LOC: ED 10:36
PROC: 2W3UXYZ Immobilization of Right Toe using Other Device (ICD-10-PCS; principal; 2021-05-10)
DX: S92.511A Displaced fracture of proximal phalanx of right lesser toe(s), initial encounter for closed fracture (principal); J45.909 Unspecified asthma, uncomplicated; F31.9 Bipolar disorder, unspecified; M54.9 Dorsalgia, unspecified; G89.29 Other chronic pain; W22.03XA Walked into furniture, initial encounter

== ENCOUNTER 2022-03-24 22:18 | Emergency (ER) | payer MEDICARE ==
[~2022-03-24] VITALS: Ht 175.3 cm; Wt 88.0 kg
[~2022-03-24 22:18] MED LIST changes: +ARIPIPRAZOLE5 MG PO; +CELECOXIB200 MG PO; +DOXEPIN HYDROCH PO
[2022-03-24 22:35] VITALS: BP 137/85
[2022-03-24 23:01] VITALS: BP 141/79
[2022-03-24] MEDS ORDERED: ULTRAM50 M1 PO (23:54)
[2022-03-25 00:22] VITALS: BP 141/79
[2022-03-25] MEDS ORDERED: LORTAB 5/3255 MG PO (00:36)
== END 2022-03-25 00:42 | disposition home or self-care (01) ==
LOC: ED 22:18
DX: S09.90XA Unspecified injury of head, initial encounter (principal); S29.9XXA Unspecified injury of thorax, initial encounter; J45.909 Unspecified asthma, uncomplicated; F31.9 Bipolar disorder, unspecified; W18.30XA Fall on same level, unspecified, initial encounter; Y92.009 Unspecified place in unspecified non-institutional (private) residence as the place of occurrence of the external cause; Z87.01 Personal history of pneumonia (recurrent)

== ENCOUNTER 2023-04-25 14:49 | Emergency (ER) | payer MEDICARE, MEDICAID ==
[~2023-04-25] VITALS: Ht 175.3 cm; Wt 72.0 kg
[2023-04-25] VITALS (24 sets, daily range): BP systolic 78–142; BP diastolic 51–99
[~2023-04-25 14:49] MED LIST changes: +ULTRAM50 M1 PO
[2023-04-25 15:40] LABS: BASO% 0.3 % (0-3); HEMATOCRIT 40.1 % (37.0-47.0); IMMATURE GRANULOCYTES 0.2 % (0.0-5.0); LYMPH% 24.7 % (15-41); MEAN CELL VOLUME 90.5 fL CALC (80.0-100.0); MEAN CORPUSCULAR HGB 28.7 pG CALC (26.0-32.0); MEAN CORPUSCULAR HGB CONC 31.7 g/dL CAL (32.0-36.0); MONO% 9.3 % (2-13); NEUT# 4.16 thou/uL (2.00-7.15); NEUT% 62.5 % (42-76); RED BLOOD COUNT 4.43 mill/uL (4.20-5.60); RED CELL DISTRI WIDTH 13.6 % (11.5-15.5)
[2023-04-25 15:46] LABS: HEMOGLOBIN 12.7 g/dl (12.0-16.0)
[2023-04-25 16:04] LABS: ALBUMIN 4.6 g/dL (3.2-5.0); ALKALINE PHOSPHATASE 65 u/l (38-126); ANION GAP 14 (6-22 (CALC)); BUN 20 mg/dL (7-17); BUN/CREATININE RATIO 24 (12-20 (CALC)); CARBON DIOXIDE 24 mmol/l (22-30); CHLORIDE 101 mmol/l (95-108); CREATININE 0.8 mg/dL (0.5-1.0); GFR FOR AFR.AMER. > 60 ML/MIN (>=60 (CALC)); GFR OTHER RACES > 60 ML/MIN (>=60 (CALC)); POTASSIUM 4.1 mmol/l (3.5-5.1); SGOT/AST 52 u/l (14-36); SODIUM 135 mmol/l (137-146); TOTAL PROTEIN 7.4 g/dL (6.3-8.2)
[2023-04-25 16:09] LABS: BILIRUBIN, TOTAL 0.3 mg/dL (0.02-1.3)
== END 2023-04-25 18:41 | disposition home or self-care (01) ==
LOC: ED 14:49
PROVIDERS: Family Medicine
PROC: 0HQ0XZZ Repair Scalp Skin, External Approach (ICD-10-PCS; principal; 2023-04-25)
DX: S01.01XA Laceration without foreign body of scalp, initial encounter (principal); I95.1 Orthostatic hypotension; J45.909 Unspecified asthma, uncomplicated; F31.9 Bipolar disorder, unspecified; W18.30XA Fall on same level, unspecified, initial encounter; Y92.000 Kitchen of unspecified non-institutional (private) residence as the place of occurrence of the external cause; Z20.822 Contact with and (suspected) exposure to COVID-19

== ENCOUNTER 2023-05-15 14:32 | Emergency (ER) | payer MEDICARE, MEDICAID ==
[~2023-05-15] VITALS: Ht 175.3 cm; Wt 74.0 kg
[2023-05-15 16:07] VITALS: BP 109/63
[2023-05-15 16:15] VITALS: BP 103/67
== END 2023-05-15 16:26 | disposition home or self-care (01) ==
LOC: ED 14:32
DX: S90.122A Contusion of left lesser toe(s) without damage to nail, initial encounter (principal); J45.909 Unspecified asthma, uncomplicated; F31.9 Bipolar disorder, unspecified; W22.09XA Striking against other stationary object, initial encounter; Y93.01 Activity, walking, marching and hiking